=== PATIENT | female | born 1960 | race Caucasian/White ===

== ENCOUNTER 2019-05-23 06:36 | Outpatient (CLI) | payer OTHER, SELFPAY ==
--- NOTE | 2019-05-23 07:15 | MR_ITS ---
WS: [id number] MRI LEFT SHOULDER HISTORY: LEFT shoulder pain. Adhesive capsulitis. COMPARISON: None available. TECHNIQUE: Multiplanar sequences of the shoulder joint are submitted. Increased signal measuring 7 mm in the distal supraspinatus tendon consistent with tendinopathy. No f ull-thickness tear or increased T2 signal through the rotator cuff tendons. No retraction or muscle a trophy. There is a very small amount of increased T2 signal at the rotator cuff interval and the paul ps tendon attachment. Increased signal in the coracohumeral ligament. No full-thickness tear or retra ction. Small amount of increased signal surrounds the superior labrum but no discrete labral tear. Th ere is mild thickening of the joint capsule in the axillary recess with increased T2 signal. Biceps tendon is in normal position with a small amount of increased fluid in the biceps tendon sheat h. Minimal AC joint arthritis. MR/MR shoulder LT wo con* [id number] IMPRESSION: 1. Changes in the coracohumeral ligament and extrahepatic ducts suggesting mil d to moderate adhesive capsulitis. 2. Focal tendinopathy distal supraspinatus tendon without tear.
== END 2019-05-23 06:37 | disposition home or self-care (01) ==
LOC: RADSHAW 06:40
PROVIDERS: Family Provider Internal Medicine; PCP Internal Medicine; Visit Provider Internal Medicine
DX: M25.512 Pain in left shoulder (principal)
CPT/HCPCS: 73221

== ENCOUNTER 2019-06-05 05:43 | Day surgery (SDC) | payer OTHER, SELFPAY ==
[2019-06-04 10:58] VITALS: BMI 27.4
[2019-06-05] VITALS (15 sets, daily range): BP systolic 88–149; BP diastolic 55–89; PULSE 49–76; RESP 14–19; TEMP 36.1–36.2; O2SAT 93–99
[2019-06-05] MEDS: scopolamine 1.5 Patch 1 PATCH TRANSDERMA (06:14)
[2019-06-05] MEDS: sodium chloride 0.9% 1,000 ML 30 ML IV (06:15)
--- NOTE | 2019-06-05 06:19 | ANES.PREANE2 ---
Pre-Anesthetic Assessment Pre-Anesthetic Assessment: Height/Weight: Height 1.63 m Weight 72.575 kg Temp Pulse Resp BP Pulse Ox 97 F L 75 18 126/77 96 06/05/19 05:57 06/05/19 05:57 06/05/19 05:57 06/05/19 05:57 06/05/19 05:57 Preop Diagnosis: Left adhesive capsulitis shoulder Proposed Procedure: Operation Date: 06/05/19 07:00 Proposed Procedures p Manipulation Under Anesthesia Left Shoulder 20999 M75.82(Left) - Fuad Abrams MD Was Beta Katie taken within 24 hours: Yes Last intake: Intake Last Liquid Date 06/04/19 Last Solid Date 06/04/19 Last Intake: 20:00 Exam: Pre-Anes Outpt Exam: alert, oriented x 3, clear to auscultation bilaterally and regular rate & rhythm Airway: Submandibular: WNL Cervical ROM: WNL MP: 1 CV/HEM: Comments: 2 Blocks/2FOS without angina/JARRELL stress test '13 negative Holter without concenrns PVCs GI: GI: GERD Neuropsych: Neuropsych: Anxiety Meds/Allergies Current Medications: Current Medications Generic Name Dose Route Start Last Admin Trade Name Freq PRN Reason Stop Dose Admin Sodium Chloride 1,000 mls @ 30 ml s/hr 06/05/19 06:00 06/05/19 06:15 Sodium Chloride 0.9% IV 06/06/19 05:59 30 mls/hr .Q24H TIGIST Administration PFSH Anesthesia PFSH: Surgical History (Updated 06/05/19 @ 06:12 by Mally Vargas) History of appendectomy History of cholecystectomy History of hysterectomy History of tonsillectomy and adenoidectomy Social History Smoking and tobacco status: never smoked Alcohol intake: current Alcohol intake frequency: few times a month History of recent travel: No Data Anesthesia Cardiac Studies: No Data to Display
[2019-06-05] MEDS: fentaNYL 50 mcg/mL INJ 2mL 100 MCG IVP (06:47)
[2019-06-05] MEDS: midazolam 1 mg/mL INJ 5 ML 5 MG IVP (06:48)
--- NOTE | 2019-06-05 06:51 | ANES.PROC ---
Anesthesia Procedures Procedure/Date: 06/05/19 Left innerscalene block Procedure Narrative: R&B's of left innerscalene block disc'd. Verbal and written consent. Versed 2+1+1+1mg, Fentanyl 50+25ug. US utilized to identify left innerscalene groove, ADAM. Nerve stimulator at 0.8 mAMPS. 40cc Ropvicaine 0.5% + Lido 2% with epi 3:1 mixture in 5cc increments. Nerve Block ^: Nerve Block 1: Main Anesthesia: general anesthesia Time Out Performed: Yes Consent: requested by attending/covering physician, from patient, risks and benefits reviewed and patient agrees to proceed Nerve block location: interscalene Anesthesia monitors applied: pulse oximetry and oxygen Nerve block position: supine Anesthetic Used: lidocaine 2%, ropivicaine 0.5% and with epi Amount of anesthesia used (mL): 40 Ultrasound used to: visualize and ID interscalene groove Nerve Stimulator Used?: Yes Interscalene/Femoral BLK: 2 stimuplex 22 g needle used for position and inplane approach Injection: neg aspiration of heme Patient Tolerated Procedure: well and no complications Complications: none
--- NOTE | 2019-06-05 06:53 | W.PM.OPSUD ---
Surgery/Procedure H&P Update DATE OF PROCEDURE: June 05, 2019 DATE H&P PERFORMED: 05/30/19 H&P UPDATE INFORMATION: I have reviewed H&P completed within last 30 days PREOP DIAGNOSIS: Left adhesive capsulitis shoulder PRIMARY INDICATION FOR PROCEDURE: Left shoulder pain and stiffness unresponsie to exercise program PLANNED PROCEDURE: Operation Date: 06/05/19 07:00 Proposed Procedures p Manipulation Under Anesthesia Left Shoulder 42921 M75.82(Left) - Fuad Abrams MD
[2019-06-05] MEDS: betamethasone susp 6 mg/mL 5 mL IM (07:15)
--- NOTE | 2019-06-05 07:23 | PM.OP ---
Operative Report Date of procedure: June 05, 2019 Pre-op Diagnosis: Left adhesive capsulitis shoulder Post-op diagnosis: same Post-op Findings: Diminished range of motion left shoulder Procedure Done: Depilation left shoulder, injection subacromial space Pathology: none sent Surgeon: Fuad Abrams Anesthesia: General Estimated blood loss (mL): 0 Complications: None Findings: Under anesthesia the patient's left shoulder could be flexed to 120 degrees and externally rotated 20 degrees. She can be abducted 70 degrees. By comparison, contralateral shoulder motions were 180 degrees of flexion, 60 degrees external rotation. In 90 degrees of abduction the contralateral shoulder can be externally rotated 90 degrees and internally rotated 80 degrees Procedure: The patient was taken to the operating room and given a general anesthesia. Initially her right shoulder was assessed for range of motion to provide a comparison normal. Motion was then assessed in the left shoulder. Initially the shoulder was brought in the flexion with adhesions releasing in the arm being brought to 180 degrees. The arm was then abducted 90 degrees and externally rotated 90 degrees and internally rotated 60 degrees.. Finally the elbow was brought to the side and externally rotated 60 degrees with more adhesions being released. The shoulder was prepped laterally with Betadine. A 22-gauge needle was introduced and the subacromial space infiltrated with 1 cc of Celestone Soluspan and 4 cc of 0.5% Marcaine. Patient was placed in a sling and taken recovery room in stable condition.
--- NOTE | 2019-06-05 07:28 | SUR.PHASEI ---
0709 PATIENT TO PACU AT THIS TIME. RR EVEN AND UNLABORED. OPENS EYES TO VERBAL STIMULI. BANDAID NOTED TO LEFT SHOULDER, WITH SLING IN PLACE. CAP REFILL INTACT. PATIENT PLACED ON NC O2 AT 3L, SPO2 97%.
[2019-06-05] MEDS: fentaNYL 50 mcg/mL INJ 2mL IVP ×2 (07:42→07:47)
--- NOTE | 2019-06-05 08:10 | SUR.PHASEI ---
0804 PATIENT TO OPS AT THIS TIME. SLING IN PLACE TO LEFT ARM, CAP REFILL IN PLACE. PATIENT A/OX3. NO DISTRESS.
[2019-06-05] MEDS: oxyCODONE-APAP 5-325 mg Tablet 1 TAB PO (08:42)
== END 2019-06-05 09:11 | disposition home or self-care (01) ==
PROVIDERS: Family Provider Internal Medicine; PCP Internal Medicine; Visit Provider Orthopaedic Surgery
PROC: (CPT 20610; principal; 2019-06-05 07:00)
DX: M75.02 Adhesive capsulitis of left shoulder (principal); K21.9 Gastro-esophageal reflux disease without esophagitis; Z82.49 Family history of ischemic heart disease and other diseases of the circulatory system; Z83.3 Family history of diabetes mellitus
CPT/HCPCS: 20610; 12345; 96374; 96375; J0702; J2001; J2250; J2704; J2795; J3010; J3490; J7030

== ENCOUNTER 2019-06-06 15:40 | Outpatient (RCR) | payer OTHER, SELFPAY | END 2019-06-08 23:59 | disposition home or self-care (01) | LOC: SPT 15:40 | PROVIDERS: Family Provider Internal Medicine; PCP Internal Medicine; Referring Provider Orthopaedic Surgery; Visit Provider Orthopaedic Surgery | DX: M75.02 Adhesive capsulitis of left shoulder (principal) | CPT/HCPCS: 97110; 97162 ==

== ENCOUNTER → 2019-06-18 09:00 | Outpatient (BNVA) | payer OTHER, SELFPAY | PROVIDERS: Family Provider Internal Medicine; PCP Internal Medicine; Visit Provider Internal Medicine Cardiovascular Disease | DX: R00.2 Palpitations (principal); E78.5 Hyperlipidemia, unspecified; I44.1 Atrioventricular block, second degree; I10 Essential (primary) hypertension | CPT/HCPCS: 80053; 80061; 84443 ==

== ENCOUNTER 2019-07-10 06:00 | Outpatient (RCR) | payer OTHER, SELFPAY | END 2019-08-08 23:59 | disposition home or self-care (01) | LOC: SPT 06:00 | PROVIDERS: Family Provider Internal Medicine; PCP Internal Medicine; Referring Provider Orthopaedic Surgery; Visit Provider Orthopaedic Surgery | DX: M75.02 Adhesive capsulitis of left shoulder (principal) | CPT/HCPCS: 97110 ==

== ENCOUNTER 2019-08-28 14:23 | Outpatient (CLI) | payer OTHER, SELFPAY ==
[2019-08-28 14:58] LABS: Add Urine Microscopic? YES; Bilirubin Urine Neg (NEGATIVE); Blood Urine 3+ (Negative); Glucose Urine UA Norm (Normal); Ketones Urine Negative (Negative); Leukocyte Esterase Urine 1+ (Negative); Nitrate Urine Negative (Negative); Protein Urine 1+ (Negative); Sulfosalicylic Acid Urine Positive (Negative); Urine Appearance Cloudy (CLEAR); Urine Color Yellow (Yellow); Urobilinogen Urine Norm (Negative); pH Urine 8 (5-7)
[2019-08-28 15:03] LABS: RBC Urine 25-40 /hpf (0-2)
[2019-08-28 15:04] LABS: Add Urine Culture? Yes; Bacteria Urine 3+; Squamous Epithelial Cell Urine 0-4 (0-5)
== END 2019-08-28 14:24 | disposition home or self-care (01) ==
LOC: LAB 14:25
PROVIDERS: Nurse Practitioner Family; PCP Internal Medicine; Visit Provider Internal Medicine
DX: N39.0 Urinary tract infection, site not specified (principal); R31.9 Hematuria, unspecified
CPT/HCPCS: 81001; 87086

== ENCOUNTER → 2019-10-31 17:04 | Outpatient (BNVA) | payer OTHER, SELFPAY | PROVIDERS: PCP Internal Medicine; Visit Provider Dermatology | DX: L98.8 Other specified disorders of the skin and subcutaneous tissue (principal); Z41.1 Encounter for cosmetic surgery | CPT/HCPCS: 64612; 99398; G0463; J0585 ==

== ENCOUNTER → 2019-11-13 16:31 | Outpatient (BNVA) | payer SELFPAY | PROVIDERS: PCP Internal Medicine; Visit Provider Dermatology | DX: L98.8 Other specified disorders of the skin and subcutaneous tissue (principal); Z41.1 Encounter for cosmetic surgery ==

== ENCOUNTER 2019-11-26 11:38 | Outpatient (RCR) | payer OTHER, SELFPAY | END 2019-12-09 23:59 | disposition home or self-care (01) | LOC: SPT 11:38 | PROVIDERS: PCP Internal Medicine; Referring Provider Nurse Practitioner Family; Visit Provider Nurse Practitioner Family | DX: H81.11 Benign paroxysmal vertigo, right ear (principal) | CPT/HCPCS: 95992; 97162 ==

== ENCOUNTER → 2020-02-06 11:53 | Outpatient (BNVA) | payer OTHER, SELFPAY | PROVIDERS: PCP Internal Medicine; Visit Provider Family Medicine | DX: Z11.59 Encounter for screening for other viral diseases (principal); Z20.828 Contact with and (suspected) exposure to other viral communicable diseases | CPT/HCPCS: 87635 ==

== ENCOUNTER → 2020-11-24 13:00 | Outpatient (BNVA) | payer OTHER, SELFPAY | PROVIDERS: PCP Internal Medicine; Visit Provider Nurse Practitioner Family | DX: E78.5 Hyperlipidemia, unspecified (principal); I10 Essential (primary) hypertension; R53.83 Other fatigue; Z12.31 Encounter for screening mammogram for malignant neoplasm of breast | CPT/HCPCS: 80053; 80061; 83036; 84443 ==

== ENCOUNTER → 2021-04-27 09:15 | Outpatient (BNVA) | payer OTHER, SELFPAY | PROVIDERS: PCP Internal Medicine; Visit Provider Family Medicine | DX: Z20.828 Contact with and (suspected) exposure to other viral communicable diseases (principal) | CPT/HCPCS: 87635 ==

== ENCOUNTER → 2022-10-12 14:47 | Outpatient (BNVA) | payer OTHER, SELFPAY | PROVIDERS: PCP Internal Medicine; Visit Provider Internal Medicine | DX: R07.9 Chest pain, unspecified (principal) | CPT/HCPCS: 93005 ==

== ENCOUNTER 2022-11-01 14:42 | Outpatient (CLI) | payer OTHER, SELFPAY ==
--- NOTE | 2022-11-01 15:00 | USCV_ITS ---
Nadege Miranda Age: 62 Gender: F : 1960 Exam Date: 11/01/2022 15:21 Ordering Phys: Junaid Mott M.D ([email or web address]) Technologist: Solomon Sprague [place] [facility] [place] chest pain, sob BP: 126 / 88 HR: 68 Rhythm: Sinus Technical Quality: Adequate MEASUREMENTS (Male / Female) Normal Values 2D ECHO LVOT Diameter 2.0 cm LV Ejection Fraction MOD 2C 70.3 % LV Ejection Fraction 2C AL 72.0 % LA Diameter 3.0 cm LA Width 2.8 cm LA Height 3.9 cm RA Width 3.2 cm RA Height 3.7 cm Aorta at Sinotubular Diameter 2.0 cm IVC Diameter 1.9 cm M-MODE Aortic Annulus Diameter 2.3 cm LA Ao Ratio MM 1.3 MV E Point Septal Separation 0.4 cm DOPPLER AV Peak Velocity 126.0 cm/s LVOT Peak Velocity 74.0 cm/s AV Area Cont Eq vti 1.9 cm squared AV Area Cont Eq pk 1.9 cm squared MV Peak Velocity 82.0 cm/s MV Area PHT 5.0 cm squared Mitral E to A Ratio 1.2 MV E' Velocity 38.5 cm/s Mitral E to MV E' Ratio 8.1 Mitral E to LV E' Lateral Ratio 8.3 Mitral E to LV E' Septal Ratio 7.9 TR Peak Velocity 280.0 cm/s TR Peak Gradient 31.4 mmHg TR Mean Velocity 213.7 cm/s TR Mean Gradient 20.0 mmHg TR Velocity Time Integral 68.3 cm Right Atrial Pressure 3.0 mmHg Pulmonary Artery Systolic Pressu 34.4 mmHg PV Peak Velocity 88.3 cm/s RV Acceleration Time 0.1 s RV Ejection Time 0.3 s RV AcT/ET 0.2 FINDINGS Left Ventricle Left ventricle is normal in size. LV systolic function is normal with EF of 60-65%. No regional wall motion abnormalities are seen. Right Ventricle Normal in size and function Right Atrium Normal in size Left Atrium Normal in size Mitral Valve Possible mitral prolapse..Mild mitral regurgitation. Aortic Valve Structurally normal aortic valve. Mild aortic regurgitation. Tricuspid Valve Mild tricuspid regurgitation. Insufficient TR jet to calculate RVSP Pulmonic Valve Not well visualized. Trace pulmonic regurgitation. Pericardium Normal Aorta Normal in size IVC Appears to be normal CONCLUSIONS LV systolic function is normal with EF of 60 to 65%. Mild mitral regurgitation Mild aortic regurgitation Mild tricuspid regurgitation Mild pulmonary hypertension Trace pulmonic regurgitation. Compared to prior echocardiogram from 2014, no significant changes seen Junaid Mott MD (Electronically Signed) Final Date: 13 November 2022 12:43 S
== END 2022-11-01 14:43 | disposition home or self-care (01) ==
PROVIDERS: PCP Family Medicine; Visit Provider Internal Medicine
DX: R06.02 Shortness of breath (principal); R07.9 Chest pain, unspecified
CPT/HCPCS: 93306

== ENCOUNTER 2022-11-23 05:19 | Emergency (ER) | payer OTHER, SELFPAY ==
[2022-11-23 05:32] VITALS: BP 147/88; PULSE 74; RESP 16; TEMP 36.8; O2SAT 97; BMI 27.4
[2022-11-23 05:38] VITALS: BP 147/88; PULSE 70; RESP 16; O2SAT 97
--- NOTE | 2022-11-23 06:12 | XRR_ITS ---
PROCEDURE INFORMATION: Exam: XR Left Hip Exam date and time: 11/23/2022 6:26 AM Age: 62 years old Clinical indication: Hip pain; Left hip; Additional info: Fall 2 mos ago TECHNIQUE: Imaging protocol: Radiologic exam of the left hip. Views: 2 or 3 views hip with pelvis when performed. COMPARISON: CR XR hip LT 2-3V wo/w pel* [id number] 10/17/2022 3:57 PM FINDINGS: Bones/joints: Nondisplaced fracture of the lateral aspect of the superior pubic ramus. Nondisplaced fracture of the medial aspect of the inferior pubic ramus. No evidence of fracture involving the hip or the femur. Soft tissues: Unremarkable. XR/XR hip LT 2-3V wo/w pel* [id number] IMPRESSION: Nondisplaced fracture of the lateral aspect of the superior pubic ramus. Nondisplaced fracture of the medial aspect of the inferior pubic ramus. These findings were not visible on recent hip radiograph 10/17/2022 and likely represent interval remodeling and periostitis secondary to occult fractures obtained from trauma near that time. Recommend CT pelvis without contrast for further evaluation.
--- NOTE | 2022-11-23 06:27 | W.ED.EXTPRO ---
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: extremity pain Onset (ago): week(s) Pain Consistency: constant Location: left and lower extremity Quality: sharp Radiation: distal Relieving factors: nothing Exacerbating factors: weight bearing and walking Associated symptoms: Deny arthralgias, chest pain, fever(s), myalgias, rash or short of breath Review of Systems Const: Denies: fever(s), chills, fatigue or malaise ENMT: Denies: throat pain, ear or mastoid pain, nasal discharge or nasal congestion Card: Denies: chest pain Resp: Denies: dyspnea, productive cough or non-productive cough GI: Denies: abdominal pain, nausea, vomiting or hematemesis : Denies: flank pain, difficulty voiding, dysuria, urinary frequency or urinary urgency Musc: Reports: back pain and extremity pain Skin/Breast: Denies: rash or pruritus PFSH ED PFSH: Medical History (Updated 11/23/22 @ 09:37 by John Goldberg DO) Anxiety Arthritis Depression Dyslipidemia Heart palpitations HTN (hypertension) Mobitz (type) I (Wenckebach's) atrioventricular block Kirkpatrick's neuroma of right foot Surgical History H/O breast augmentation History of appendectomy History of cholecystectomy History of hysterectomy History of tonsillectomy and adenoidectomy Family History Mother CAD (coronary artery disease) Hypertension Cancer Father Cancer Other Stroke Social History Smoking and tobacco status: never smoked Alcohol intake: current Alcohol intake frequency: few times a month Substance/Drug Use: never Physical Exam Const: GENERAL APPEARANCE: cooperative and comfortable ORIENTATION/CONSCIOUSNESS: Yes awake, Yes oriented to person, Yes oriented to place and Yes oriented to time HENMT: COMMON NORMALS: normocephalic, atraumatic and hearing grossly normal bilaterally HEAD & SCALP: normocephalic and atraumatic Resp: COMMON NORMALS: normal respiratory effort, No retractions, No use of accessory muscles and clear to auscultation bilaterally AUSCULTATION: clear to auscultation bilaterally Cardio: COMMON NORMALS: regular rate, regular rhythm and No murmurs present (Cardio) RATE: regular rate RHYTHM: regular rhythm Extremity: COMMON NORMALS: normal to inspection, capillary refill normal, no clubbing, cyanosis or edema, no calf tenderness and no pedal edema Neuro: SENSORIUM/ORIENTATION: Yes oriented to person, Yes oriented to place and Yes oriented to time MOTOR EXAM: 5/5 motor strength present throughout DEEP TENDON REFLEXES: Right patellar reflex intensity grade: 2+ and Left patellar reflex intensity grade: 2+ OTHER: Sensation lower extremities bilaterally intact. Dorsum plantarflexion strength are 5 of 5 EHL bilaterally 5 of 5 Skin: COMMON NORMALS: no rashes or lesions noted GENERAL SKIN EXAM: no rashes or lesions noted Course Vital Signs: Vital signs: Vital Signs Temperature 98.3 F 11/23/22 07:02 Pulse Rate 70 11/23/22 07:02 Respiratory Rate 16 11/23/22 07:02 Blood Pressure 147/88 11/23/22 07:02 Pulse Oximetry 97 11/23/22 07:02 Oxygen Delivery Me thod Room Air 11/23/22 05:32 MDM - Extremity (Nontraumatic) Medical Decision Making Patient appears to have left radicular leg symptoms no red flag symptoms. She is using tramadol at home. Given IM ketorolac morphine and dexamethasone and Norflex here in the emergency room. Continue tramadol add steroid taper tizanidine diclofenac and Lyrica. Follow-up with MRI as scheduled. Medical Records I reviewed the patient's medical records. Lab Data I reviewed the patient's lab results. Radiology Impressions Hip/Pelvis X-Ray 11/23/22 06:12 IMPRESSION: Nondisplaced fracture of the lateral aspect of the superior pubic ramus. Nondisplaced fracture of the medial aspect of the inferior pubic ramus. These findings were not visible on recent hip radiograph 10/17/2022 and likely represent interval remodeling and periostitis secondary to occult fractures obtained from trauma near that time. Recommend CT pelvis without contrast for further evaluation. ADDENDUM: 11/23/22 0734 THIS REPORT CONTAINS FINDINGS THAT MAY BE CRITICAL TO PATIENT CARE. The findings were verbally communicated via telephone conference with Dr. John Goldberg at 7:32 AM CDT on 11/23/2022. The findings were acknowledged and understood. Discharge Plan Discharge Patient Disposition: Home Clinical Impression: Left lumbar radiculopathy Condition: Stable Prescriptions: New tizanidine 4 mg tablet 4 mg PO Q6H PRN (Reason: muscle spasticity) Qty: 20 0RF Rx Instructions: do not exceed 3 doses per 24 hrs prednisone 20 mg tablet 20 mg PO TID Qty: 15 0RF Rx Instructions: 1 p.o. 3 times daily x3 days, 1 p.o. twice daily x2 days, 1 p.o. daily x2 days diclofenac sodium 75 mg tablet,delayed release (DR/EC) 75 mg PO Q12H PRN (Reason: pain) Qty: 20 0RF Lyrica 75 mg capsule 75 mg PO BID Qty: 60 0RF Discontinued ibuprofen 800 mg tablet 800 mg PO Q6H PRN (Reason: pain) Qty: 90 3RF No Action melatonin 10 mg tablet 10 mg PO BEDTIME vilazodone [Viibryd] 20 mg tablet 20 mg PO DAILY Rx Instructions: must administer with a meal/food buspirone 7.5 mg tablet 10 mg PO TID PRN spironolacton-hydrochlorothiaz 50-50 mg tablet PO biotin 10,000 mcg capsule PO [id number]-[id number]-jrct-lutein Tablet PO omeprazole 20 mg tablet,delayed release (DR/EC) 20 mg PO DAILY rosuvastatin 10 mg tablet 10 mg PO DAILY Qty: 90 3RF Premarin 0.625 mg tablet 0.625 mg PO DAILY Qty: 30 6RF eszopiclone 2 mg tablet 2 mg PO .HS Qty: 90 0RF metoprolol tartrate 25 mg tablet 25 mg PO BID Qty: 180 3RF tramadol 50 mg tablet 50 mg PO QID PRN (Reason: pain) Qty: 20 0RF Discharge Orders: Discharge ED (Routine); Ordered 11/23/22 Ordered By: John Goldberg Referrals: Hi Camacho MD [Primary Care Provider] - Discharge Diet: Usual diet Discharge Activity: Limit activity as instructed Patient Instructions: Opioid Safety, Pain Management Activity Restrictions/Additional Instructions: You were seen today for left leg and groin pain. On exam and by your history it sounds as if you may have a nerve root irritation in the low back that is causing the pain radiating into your left leg and groin. There is no sign of a cauda equina syndrome. X-ray of your hip does not show any acute fracture. Your history and exam do not have any red flag symptoms or exam findings. Recommend you continue the tramadol we will add diclofenac and tizanidine along with that as needed. You were given a steroid injection in the emergency room recommend to start oral steroids beginning tomorrow. Coding Level of Care Code ED Agricultural Extension Agent for Renuka Busby
[2022-11-23] MEDS: orphenadrine 30 mg/mL Inj 2 mL 60 MG IM (06:39)
[2022-11-23] MEDS: dexamethasone 10 mg/mL INJ IM (06:39)
[2022-11-23] MEDS: morphine 4 mg/mL SDV 1 mL IM (06:39)
[2022-11-23] MEDS: ketorolac 60 mg/2 mL INJ IM (06:40)
[2022-11-23 07:02] VITALS: BP 147/88; PULSE 70; RESP 16; TEMP 36.8; O2SAT 97
== END 2022-11-23 07:03 | disposition home or self-care (01) ==
PROVIDERS: Emergency Provider Family Medicine; PCP Family Medicine
DX: M54.16 Radiculopathy, lumbar region (principal)
CPT/HCPCS: 73502; 96372; 99284; J1100; J1885; J2270; J2360

== ENCOUNTER 2022-11-23 08:20 | Emergency (ER) | payer OTHER, SELFPAY ==
--- NOTE | 2022-11-23 08:25 | CT_ITS ---
WS: [id number] CT PELVIS WITHOUT CONTRAST HISTORY: trauma/pain TECHNIQUE: Contiguous imaging is performed of the pelvis without contrast. Coronal and sagittal refor mats are reviewed. All CT scans at [facility] use at least one of these dose optimization gary hniques: automated exposure control; mA and/or kV adjustment per patient size (includes targeted exam s where dose is matched to clinical indication); or iterative reconstruction. DLP: 440.48 mGy.cm COMPARISON: Left hip radiograph 11/23/2022 and 10/17/2022. Nondisplaced fractures with very minimal healing noted in the superior and inferior pubic rami on the left. These fractures are identified on the most recent radiographs of 11/23/2022. These fractures we re not radiographically evident on 10/17/2022. Slightly greater callus formation involving the inferio r pubic ramus fracture. Left hip is negative for acute fracture. SI joints are normal. Prior cholecystectomy. Small fat-containing umbilical hernia. IMPRESSION: 1. Nondisplaced left superior and inferior pubic rami fractures. These fractures are probably subacut e. There is some callus formation especially surrounding the inferior pubic rami fracture. 2. Fractures were not evident on the radiographs of 10/17/2022. 3. No left hip fracture.
[2022-11-23 08:29] VITALS: BP 145/81; PULSE 61; RESP 16; O2SAT 98
--- NOTE | 2022-11-23 09:06 | ED_ITS ---
HPI - Recheck/Abnormal Lab/Rx General: Chief Complaint: Recheck/Abnormal Lab/Rx Stated Complaint: LT hip/abn xray Time Seen by Provider: 11/23/22 08:24 Source: patient Mode of arrival: ambulatory History of Present Illness: Patient seen earlier this morning and asked to return. Radiology did identified fractures that I had not seen when I reviewed the film. They recommended CT we contacted patient and informed her and asked her to return to the emergency room. No other trauma since leaving the ER earlier today. She still has similar discomfort to before. PFSH ED 2 PFSH: Medical History (Updated 11/23/22 @ 09:37 by John Goldberg DO) Anxiety Arthritis Depression Dyslipidemia Heart palpitations HTN (hypertension) Mobitz (type) I (Wenckebach's) atrioventricular block Kirkpatrick's neuroma of right foot Surgical History H/O breast augmentation History of appendectomy History of cholecystectomy History of hysterectomy History of tonsillectomy and adenoidectomy Family History Mother CAD (coronary artery disease) Hypertension Cancer Father Cancer Other Stroke Social History Smoking and tobacco status: never smoked Alcohol intake: current Alcohol intake frequency: few times a month Substance/Drug Use: never Course Vital Signs: Vital signs: Vital Signs Pulse Rate 63 11/23/22 09:49 Respiratory Rate 16 11/23/22 08:29 Blood Pressure 145/81 11/23/22 08:29 Pulse Oximetry 97 11/23/22 09:49 Oxygen Delivery Me thod Room Air 11/23/22 08:29 MDM - Recheck/Abnormal Lab/Rx Medical Decision Making CT pelvis without contrast shows subacute inferior and superior pubic rami fracture with some callus formation reviewed the findings with the patient. We will take her off work refilled her tramadol. Advised her not to take the prednisone we had given her earlier follow-up with her primary care doctor to see if MRI is still needed given the findings of the pelvic fracture likely may not be needed. Off work until released by Dr. Camacho. Medical Records I reviewed the patient's medical records. Lab Data I reviewed the patient's lab results. Discharge Plan Discharge Patient Disposition: Home Clinical Impression: Fracture of pubic ramus Condition: Stable Prescriptions: New tramadol 50 mg tablet 50 mg PO QID PRN (Reason: pain) Qty: 20 0RF No Action melatonin 10 mg tablet 10 mg PO BEDTIME vilazodone [Viibryd] 20 mg tablet 20 mg PO DAILY Rx Instructions: must administer with a meal/food buspirone 7.5 mg tablet 10 mg PO TID PRN spironolacton-hydrochlorothiaz 50-50 mg tablet PO biotin 10,000 mcg capsule PO [id number]-uvicvsg-ouzc-lutein Tablet PO omeprazole 20 mg tablet,delayed release (DR/EC) 20 mg PO DAILY rosuvastatin 10 mg tablet 10 mg PO DAILY Qty: 90 3RF Premarin 0.625 mg tablet 0.625 mg PO DAILY Qty: 30 6RF eszopiclone 2 mg tablet 2 mg PO .HS Qty: 90 0RF metoprolol tartrate 25 mg tablet 25 mg PO BID Qty: 180 3RF tizanidine 4 mg tablet 4 mg PO Q6H PRN (Reason: muscle spasticity) Qty: 20 0RF Rx Instructions: do not exceed 3 doses per 24 hrs prednisone 20 mg tablet 20 mg PO TID Qty: 15 0RF Rx Instructions: 1 p.o. 3 times daily x3 days, 1 p.o. twice daily x2 days, 1 p.o. daily x2 days diclofenac sodium 75 mg tablet,delayed release (DR/EC) 75 mg PO Q12H PRN (Reason: pain) Qty: 20 0RF Lyrica 75 mg capsule 75 mg PO BID Qty: 60 0RF Discharge Orders: Discharge ED (Routine); Ordered 11/23/22 Ordered By: John Goldberg Referrals: Hi Camacho MD [Primary Care Provider] - Discharge Diet: Usual diet Discharge Activity: Limit activity as instructed Patient Instructions: Opioid Safety, Pain Management Activity Restrictions/Additional Instructions: You were seen today after radiology over read your earlier x-ray and felt there was a pelvic fracture present. CT confirmed the pelvic fracture seen on the sharon in film but did not identify other fractures. Recommend that you be off work until released to return by your primary care physician. Do not take the prednisone you are given earlier you can still use diclofenac Lyrica and tizanidine as needed. Also gave you a refill of tramadol and a note for work. Discussed with your primary care doctor whether or not you need to complete the MRI as scheduled. Stand Alone Forms: Work/School Release Coding Level of Care Code ED [employer]ations for Renuka Busby
[2022-11-23 09:49] VITALS: PULSE 63; O2SAT 97
== END 2022-11-23 09:50 | disposition home or self-care (01) ==
PROVIDERS: Emergency Provider Family Medicine; PCP Family Medicine
DX: S32.592A Other specified fracture of left pubis, initial encounter for closed fracture (principal); X58.XXXA Exposure to other specified factors, initial encounter
CPT/HCPCS: 72192; 99284

== ENCOUNTER → 2022-12-08 09:52 | Outpatient (BNVA) | payer OTHER, SELFPAY | PROVIDERS: PCP Family Medicine; Referring Provider Family Medicine; Visit Provider Physician Assistant | DX: S32.512D Fracture of superior rim of left pubis, subsequent encounter for fracture with routine healing; S32.592D Other specified fracture of left pubis, subsequent encounter for fracture with routine healing; X58.XXXD Exposure to other specified factors, subsequent encounter | CPT/HCPCS: 73502 ==

== ENCOUNTER → 2023-01-19 14:05 | Outpatient (BNVA) | payer OTHER, SELFPAY | PROVIDERS: PCP Family Medicine; Visit Provider Physician Assistant | DX: S32.592D Other specified fracture of left pubis, subsequent encounter for fracture with routine healing (principal); S32.512D Fracture of superior rim of left pubis, subsequent encounter for fracture with routine healing; X58.XXXD Exposure to other specified factors, subsequent encounter | CPT/HCPCS: 72190 ==

== ENCOUNTER 2023-11-17 17:57 | Emergency (ER) | payer OTHER, SELFPAY ==
--- NOTE | 2023-11-17 18:03 | CTR_ITS ---
PROCEDURE INFORMATION: Exam: CT Head Without Contrast Exam date and time: 11/17/2023 9:54 PM Age: 63 years old Clinical indication: Pain and injury or trauma; Blunt trauma (contusions or hematomas); Headache; Patient HX: Patient sustained a fall yesterday striking RT temporal area on ground. C/O persistent RT sided head pain with dizziness. ; Additional info: Fall, head injury TECHNIQUE: Imaging protocol: Computed tomography of the head without contrast. Radiation optimization: All CT scans at this facility use at least one of these dose optimization techniques: automated exposure control; mA and/or kV adjustment per patient size (includes targeted exams where dose is matched to clinical indication); or iterative reconstruction. COMPARISON: MR yen's wo/w con* [id number] 04/02/2019 11:03 AM RADIATION DOSE METRICS: Total DLP (mGy-cm): 984.13 FINDINGS: Brain: Normal. No hemorrhage. Minimal periventricular white matter hypodensities likely represent chronic small vessel ischemic changes. No mass effect. Cerebral ventricles: No ventriculomegaly. Paranasal sinuses: Visualized sinuses are unremarkable. No fluid levels. Mastoid air cells: Visualized mastoid air cells are well aerated. Bones: Unremarkable. No acute fracture. Soft tissues: Unremarkable. CT/CT head wo con* [id number] IMPRESSION: No acute intracranial abnormality.
[2023-11-17 18:14] VITALS: BP 144/80; PULSE 66; RESP 18; TEMP 36.6; O2SAT 99; BMI 25.7
--- NOTE | 2023-11-17 21:48 | XRR_ITS ---
PROCEDURE INFORMATION: Exam: XR Right Shoulder Exam date and time: 11/17/2023 9:49 PM Age: 63 years old Clinical indication: Right; Patient HX: C/O persistent RT shoulder pain due to a fall yesterday TECHNIQUE: Imaging protocol: Radiologic exam of the right shoulder. Views: 2 or more views. COMPARISON: No relevant prior studies available. FINDINGS: Bones/joints: Mild degenerative changes of the acromioclavicular joint. No acute fracture or dislocation. Lungs: Visualized lungs are clear. Soft tissues: Normal. XR/XR shoulder RT min 2V* [id number] IMPRESSION: No acute findings.
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
== END 2023-11-17 23:16 | disposition home or self-care (01) ==
PROVIDERS: Emergency Provider Physician Assistant; PCP Electrodiagnostic Medicine
DX: S49.91XA Unspecified injury of right shoulder and upper arm, initial encounter (principal); S09.90XA Unspecified injury of head, initial encounter; W01.0XXA Fall on same level from slipping, tripping and stumbling without subsequent striking against object, initial encounter; Y99.0 Civilian activity done for income or pay
CPT/HCPCS: 70450; 73030; 99284

== ENCOUNTER → 2024-05-03 10:11 | Outpatient (BNVA) | payer MEDICARE, SELFPAY | PROVIDERS: PCP Electrodiagnostic Medicine; Visit Provider Nurse Practitioner Family | DX: L30.9 Dermatitis, unspecified (principal); L82.0 Inflamed seborrheic keratosis; R58 Hemorrhage, not elsewhere classified; R20.8 Other disturbances of skin sensation; L53.8 Other specified erythematous conditions; L29.89 Other pruritus; L57.0 Actinic keratosis | CPT/HCPCS: 17000; 17110; 99213 ==

== ENCOUNTER → 2024-06-04 10:44 | Outpatient (BNVA) | payer MEDICARE, SELFPAY | PROVIDERS: PCP Electrodiagnostic Medicine; Visit Provider Nurse Practitioner Family | DX: L40.4 Guttate psoriasis (principal); L85.3 Xerosis cutis; D18.01 Hemangioma of skin and subcutaneous tissue | CPT/HCPCS: 99213 ==

== ENCOUNTER → 2025-01-15 14:40 | Outpatient (BNVA) | payer MEDICARE, SELFPAY | PROVIDERS: PCP Electrodiagnostic Medicine; Visit Provider Nurse Practitioner Family | DX: D18.01 Hemangioma of skin and subcutaneous tissue (principal); L81.4 Other melanin hyperpigmentation; L57.8 Other skin changes due to chronic exposure to nonionizing radiation; L82.1 Other seborrheic keratosis; L23.9 Allergic contact dermatitis, unspecified cause; L82.0 Inflamed seborrheic keratosis; L29.89 Other pruritus; R20.8 Other disturbances of skin sensation; Z78.9 Other specified health status; D48.5 Neoplasm of uncertain behavior of skin | CPT/HCPCS: 11102; 17110; 99213 ==

== ENCOUNTER → 2025-02-19 10:38 | Outpatient (BNVA) | payer MEDICARE, SELFPAY | PROVIDERS: PCP Electrodiagnostic Medicine; Visit Provider Dermatology | DX: D04.62 Carcinoma in situ of skin of left upper limb, including shoulder (principal); C44.42 Squamous cell carcinoma of skin of scalp and neck | CPT/HCPCS: 11622; 13132; 99213 ==

== ENCOUNTER → 2025-03-05 09:24 | Outpatient (BNVA) | payer MEDICARE, SELFPAY | PROVIDERS: PCP Electrodiagnostic Medicine; Visit Provider Dermatology | DX: L24.4 Irritant contact dermatitis due to drugs in contact with skin (principal) | CPT/HCPCS: 99214 ==